=== PATIENT | female | born 1985 | race Caucasian/White ===

== ENCOUNTER 2020-10-20 17:46 | Emergency (ER) | payer MEDICAID, SELFPAY ==
[2020-10-20 17:49] VITALS: BP 130/87; PULSE 68; RESP 14; TEMP 36.7; O2SAT 98; BMI 29.3
--- NOTE | 2020-10-20 18:26 | EDS_ITS ---
HPI History of Present Illness Chief Complaint: Mental Health Narrative Narrative: 34-year-old female presenting with altered mental status. Apparently patient was found entering a residence by the buffing and polishing wheel repairer. She stated at that time that she was pulled there by a force. Patient's stated to police that she was a living prophecy and that she had Lex Shah. She also told police that she was poisoned by lead in the air and had been poisoned by multiple squats. Per police report patient had also been on other peoples properties and walking up and down the street with strange conversation with herself. She stated at that time to police that the telephone poles were talking to her. She was having trouble standing and was swaying back and forth. At that point she said she is stated she felt sick and needed to sit down. She states she believes also that she wanted to get home to get her mother's medications that she would feel better. On arrival to the ED patient refuses to talk except for the state that she feels fine. When asked about her previous behaviors she does not respond. She denies drug or alcohol use today. [facility] Medical History (Updated 10/20/20 @ 19:01 by Shirley Blake) Substance abuse Allergy/AdvReac Type Severity Reaction Status Date / Time azithromycin Allergy Vomiting Verified 10/20/20 17:51 Social History Smoking Status: Unknown if ever smoked ROS ROS ED Review of Systems ROS Unobtainable: due to mental condition and due to mental status EXAM Physical Exam Const Vital Signs: 10/20/20 17:49 10/20/20 20:00 10/20/20 21:00 Temperature 98.0 F Temperature Source Temporal Pulse Rate 68 Respiratory Rate 14 18 16 Blood Pressure 130/87 H Blood Pressure Mean 101 Pulse Ox 98 Oxygen Delivery Method Room Air 10/20/20 21:54 Temperature Temperature Source Pulse Rate 79 Respiratory Rate Blood Pressure 146/112 H Blood Pressure Mean 123 Pulse Ox 100 Oxygen Delivery Method Room Air Positive well nourished General Appearance ED: NAD HEENT Reports moist mucous membranes atraumatic Eyes PERRL and EOMs intact bilaterally Chest Wall inspection of chest normal and palpation of chest normal Resp normal respiratory effort and clear to auscultation bilaterally Cardio regular rate and regular rhythm GI soft to palpation, non-tender and non-distended Extremity General Extremety ED: Yes tenderness; Negative for edema General Extremity: Negative for edema Neuro CN's II-XII intact bilaterally and no sensory deficits noted Sensorium / Orientation: alert Motor Exam: strength 5/5 throughout Psych Psych Narrative: Denies suicidal homicidal ideation. Patient refuses to answer other questions. Skin Lesions: no lesions Rashes: no rashes MDM MDM MDM Narrative Medical decision making narrative: Patient presenting with altered mental status and abnormal behavior. I did review her medical history and this does appear to have happened before when she was on methamphetamine. Blood work here is unremarkable. Urinalysis negative for infection. Urine drug screen positive f or methamphetamine renal function is normal. Potassium is 3.2 and this will be repleted. Discussed with social work who recommended admission due to unstable behavior. Apparently the patient had made some comments last evening when arrested that she wanted to commit suicide. She is not saying anything about this today. Patient does not want to speak to me. Impression: 1. Suicidal ideation 2. Methamphetamine abuse 3. Altered mental Lab Data Attestation: I reviewed the patient's lab results. Labs: Laboratory Results - last 24 hr 10/20/20 10/20/20 10/20/20 18:20 18:30 18:52 WBC 9.1 RBC 4.44 Hgb 13.6 Hct 40.3 MCV 90.8 MCH 30.6 MCHC 33.7 RDW Std Deviation 39.0 RDW Coeff of Miryam 11.8 Plt Count 274 MPV 9.6 Immature Gran % (Auto) 0.400 Neut % (Auto) 67.4 Lymph % (Auto) 23.5 Gilmer % (Auto) 6.0 Eos % (Auto) 2.3 Baso % (Auto) 0.4 Absolute Neuts (auto) 6.1 Absolute Lymphs (auto) 2.13 Nucleated RBC % 0 Sodium Potassium Chloride Carbon Dioxide Anion Gap BUN Creatinine Estim Creat Clear Calc Est GFR (MDRD) Af Amer Est GFR (MDRD) Non-Af BUN/Creatinine Ratio Glucose Calcium Total Bilirubin AST ALT Alkaline Phosphatase Total Protein Albumin Globulin Albumin/Globulin Ratio Serum , Qual Urine Color Bonnie Urine Clarity Clear Urine pH 5.0 Ur Specific Carlisle 1.025 Urine Protein 30 H Urine Glucose (UA) Normal Urine Ketones 15 H Urine Occult Blood 250 H Urine Nitrite Negative Urine Bilirubin 1 H Urine Urobilinogen 4 H Ur Leukocyte Esterase 100 H Urine RBC 0-5 SEEN Urine WBC 0-5 SEEN Ur Squamous Epith Cells 0-5 SEEN Urine Bacteria 0 SEEN Urine Mucus 2+ Urine Opiates Screen NEGATIVE Urine Methadone Screen NEGATIVE Ur Barbiturates Screen NEGATIVE Ur Phencyclidine Scrn NEGATIVE Ur Amphetamines Screen POSITIVE H U Methamphetamin-MDMA POSITIVE H U Benzodiazepines Scrn NEGATIVE Urine Cocaine Screen NEGATIVE U Cannabinoids Screen NEGATIVE Ur Drug Screen Comment Ethyl Alcohol 10/20/20 10/20/20 10/20/20 18:52 18:52 18:52 WBC RBC Hgb Hct MCV MCH MCHC RDW Std Deviation RDW Coeff of Miryam Plt Count MPV Immature Gran % (Auto) Neut % (Auto) Lymph % (Auto) Gilmer % (Auto) Eos % (Auto) Baso % (Auto) Absolute Neuts (auto) Absolute Lymphs (auto) Nucleated RBC % Sodium 138 Potassium 3.2 L Chloride 105 Carbon Dioxide 24.0 Anion Gap 9 BUN 18 Creatinine 0.57 Estim Creat Clear Calc 125.14 Est GFR (MDRD) Af Amer 156 Est GFR (MDRD) Non-Af 129 BUN/Creatinine Ratio 31.6 H Glucose 92 Calcium 8.7 Total Bilirubin 0.90 AST 15 ALT 23 Alkaline Phosphatase 77 Total Protein 7.3 Albumin 3.9 Globulin 3.4 Albumin/Globulin Ratio 1.1 Serum , Qual NEGATIVE Urine Color Urine Clarity Urine pH Ur Specific Carlisle Urine Protein Urine Glucose (UA) Urine Ketones Urine Occult Blood Urine Nitrite Urine Bilirubin Urine Urobilinogen Ur Leukocyte Esterase Urine RBC Urine WBC Ur Squamous Epith Cells Urine Bacteria Urine Mucus Urine Opiates Screen Urine Methadone Screen Ur Barbiturates Screen Ur Phencyclidine Scrn Ur Amphetamines Screen U Methamphetamin-MDMA U Benzodiazepines Scrn Urine Cocaine Screen U Cannabinoids Screen Ur Drug Screen Comment Ethyl Alcohol < 3.0 Discharge Plan Triage Chief Complaint: Mental Health ED Provider: Julius Driver Dx/Rx/DC Orders Primary Care Provider: Care Physician,No Primary
[2020-10-20 18:46] LABS: Bacteria 0 SEEN /hpf (None Seen)
--- NOTE | 2020-10-20 19:02 | ED.RN ---
PER PHONE CALL TO MOTHER FELICIA, PT HAS BEEN USING METH AGAIN DAILY. MOTHER STATES SHE NEEDS TO GO BACK TO [facility], MOTHER STATES PT HAS BEEN ROAMING [employer] AND BREAKING INTO [employer]. MOTHER ADAMANTLY STATES SHE WILL NOT COME COME GET PT, SHE'S OUT OF CONTROL AND NEEDS HELP.
[2020-10-20 19:12] LABS: Absolute Lymphocyte Count 2.13 X10^3/uL (0.83-4.51); Absolute Neutrophil Count 6.1 X10^3/uL (2.0-7.7); Basophil# 0.04 X10^3/uL; Basophil% 0.4 % (0-1); Eosinophil# 0.21 X10^3/uL; Eosinophils% 2.3 % (0-5); Hematocrit 40.3 % (37-47); Hemoglobin 13.6 g/dL (12.0-15.0); Lymphocyte # 2.13 X10^3/ul (0.83-4.51); Lymphocyte % 23.5 % (19-41); Mean Corp Hgb Conc 33.7 g/dL (32-36); Mean Corpuscular Hgb 30.6 pg (27.0-32.0); Mean Corpuscular Volume 90.8 fL (81-99); Mean Platelet Vol. 9.6 fl (6.2-12.0); Monocyte# 0.54 X10^3/uL; NRBC Flagged by Analyzer 0 % (0-5); Neutrophil # 6.09 X10^3/uL (2.7-7.7); Neutrophil % 67.4 % (47-70); Platelet Count 274 K/mm3 (150-450); RBC Distribution Width CV 11.8 % (11.6-14.6); Red Blood Count 4.44 M/mm3 (4.2-5.4); White Blood Count 9.1 K/mm3 (4.4-11.0)
[2020-10-20 19:13] LABS: Color, Urine Amber (Yellow); Glucose, Dipstick Normal (Normal); Ketone-Dipstick 15 mg/dl (Negative); Leukocyte Esterase-Dipstick 100 /ul (Negative); Nitrite-Dipstick Negative (Negative); Occult Blood-Urine 250 /ul (Negative); Protein-Dipstick 30 mg/dl (Negative); Specific Gravity, Urine 1.025 (1.002-1.030); Urine Clarity Clear (Clear); Urine Urobilinogen 4 mg/dl (Normal)
[2020-10-20 19:18] LABS: Urine Bilirubin Dipstick 1 mg/dL (Negative)
[2020-10-20 19:23] LABS: Internal QC Validated? YES +Cl - CLEAR BKGD; Pregnancy, Serum, hCG Quali. NEGATIVE Negative
[2020-10-20 19:25] LABS: Mucous, Urine 2+ /hpf (<or=2+); Squamous Epithelial Cells - UA 0-5 SEEN /hpf (5-10); White Blood Cells 0-5 SEEN /hpf (0-5)
[2020-10-20 19:26] LABS: Red Blood Cells-Urine 0-5 SEEN /hpf (0-5)
[2020-10-20 19:30] LABS: ALB/GLOB Ratio 1.1 RATIO (0.9-2.4); AST(SGOT) 15 U/L (15-37); Alanine Aminotransfer ALT/SGPT 23 U/L (13-56); Albumin, Serum 3.9 g/dL (3.2-5.0); Alcohol, Blood (Medical)-Serum < 3.0 mg/dL; Alkaline Phosphatase 77 U/L (45-117); Anion Gap 9 (5-15); BUN 18 mg/dL (7-18); BUN/Creat Ratio 31.6 RATIO (10-20); Calcium,Total 8.7 mg/dL (8.5-10.1); Chloride 105 mmol/L (98-107); Creatinine, Serum 0.57 mg/dL (0.55-1.02); EST Glomerular Filtration Rate 129 mL/min (>60); Est Glom Filt Rate - Afr Amer 156 mL/min (>60); Estimated Creatinine Clearance 125.14 ml/min; Globulin 3.4 g/dL (2.2-4.2); Glucose 92 mg/dL (74-106); Potassium 3.2 mmol/L (3.5-5.1); Protein, Total 7.3 g/dL (6.4-8.2); Sodium Level 138 mmol/L (136-145)
[2020-10-20 19:46] LABS: Amphetamine Urine VISTA POSITIVE (<1000 ng/mL); Barbiturate Urine VISTA NEGATIVE (< 200 ng/mL); Benzodiazepine Urine VISTA NEGATIVE (< 200 ng/mL); Cocaine Urine VISTA NEGATIVE (< 300 ng/mL); Ecstacy Urine VISTA POSITIVE (< 500 ng/mL); Methadone Urine VISTA NEGATIVE (< 300 ng/mL); PCP Urine VISTA NEGATIVE (< 25 ng/mL); THC Urine VISTA NEGATIVE (< 50 ng/mL); Vista UDS pH Range 5
[2020-10-20 20:00] VITALS: RESP 18
--- NOTE | 2020-10-20 20:00 | CM.ED ---
SOCIAL WORK ASSESSMENT Referral Source: Dr. Driver Reason for Consult: Mental Health Chief Compliant: Patient presents to [facility] ER by squad and Lexa Slipped by police. Patient unable to actively participate in assessment. Information gathered by patient?s mother, police, and nursing staff. Marital/Social History: Single Living Situation: Homeless- mother reports patient unable to return to her home ?until she gets help.? Support/Resources: Limited History: None Education and Employment History: Some college, unemployed Mental Health Treatment/History: Mother states patient?s boyfriend believes her to be ?Bipolar.? Mother states patient has never been diagnosed with mental health issues. Abuse Issues: Mother reports unaware of any history of emotional, physical, or sexual abuse for patient. Substance Abuse History: Meth, heroin. Daily use. Risk to Self/Others: Suicidal- Mother states patient has voiced suicidal ideation to family and her boyfriend, Kana. Homicidal- Mother states Kana informed her patient threatened to kill him by ?burning down his home.? Mental Status Exam: Orientation- A&Ox2 Memory: impaired Appearance/General Behavior: disheveled Mood/Affect: bizarre, anxious Communication Pattern: will not respond to questions Thought Process: auditory and visual hallucinations, paranoid Judgement: poor Insight: poor Assessment: Patient presents [place] Slipped by police. Police reported they Police called because patient entered a residence and was found by the homeowner. Patient informed police that she was pulled to the home by a ?force? and that she was a ?living prophecy with Lex best.? Patient informed police that she was being poisoned by lead in the air and has been poisoned multiple times by EMS. Patient with bizarre behaviors. Patient reported telephone poles were ?talking to me.? Collateral information gathered by patient?s mother, Cristina Aditya. Per Cristina, patient?s boyfriend dropped her at mother?s home yesterday as she threatened to kill herself and him by burning down his home. Mother reports patient was clean for almost a year and relapsed with heroin. Mother reports patient with history of meth use. Mother concerned for patient?s safety due to threats of self harm and harm to others. Mother believes patient would benefit from hospitalization for stabilization. Mother states ?she has not been right for 2 years when she fell in a hole head first.? Emotional support provided to mother. Collaboration with Dr. Driver. Plan for inpatient psych. This worker to facilitate placement. Plan: Referral to inpatient psych for stabilization Bernard Singh, VP PRODUCT, BILL COLLECTOR
[2020-10-20 21:00] VITALS: RESP 16
--- NOTE | 2020-10-20 21:05 | CM.ED ---
SOCIAL WORK Referral faxed and called to [facility]. Pending review at this time. Bernard Singh, CAR RENTAL AGENT, CUSTOMER ACQUISITION MANAGER
--- NOTE | 2020-10-20 21:46 | CM.ED ---
SOCIAL WORK Patient accepted to [facility] by Dr. Arguello to the Intensive Treatment Unit. Nurse to call report to [phone]. [place] to set up transport. Bernard Singh, CHART READER, FIBER OPTIC SPLICER
[2020-10-20 21:54] VITALS: BP 146/112; PULSE 79; O2SAT 100
[2020-10-20 23:00] VITALS: RESP 18
[2020-10-21] VITALS: RESP 16
--- NOTE | 2020-10-21 18:37 | CM.ED ---
SW Note MAGGIE received voice mail from [facility] that Application for Emergency Admission ([place]) needs to updated with today's date. SW called [facility] and spoke to admissions. They received updated [place] at 7:30am so the situation has been handled. No further SW needs at this time. MAGGIE received call from Cristina Buregss, patient's mother who inquired about patient's status. MAGGIE updated mother on patient's placement. Cristina requested that Leif call her back on Sunday. MAGGIE will leave message for Leif, the school social worker. Susanne BEAN
== END 2020-10-21 01:28 ==
LOC: ED 19:08
PROVIDERS: Emergency Provider Student in an Organized Health Care Education/Training Program
DX: R45.851 Suicidal ideations (principal); F15.10 Other stimulant abuse, uncomplicated; R41.82 Altered mental status, unspecified
CPT/HCPCS: 80053; 80307; 81001; 82077; 84703; 85025; 87426; 99285

== ENCOUNTER 2025-01-28 11:12 | Emergency (ER) | payer OTHER, SELFPAY ==
[2025-01-28] VITALS (7 sets, daily range): BP systolic 129–131; BP diastolic 75–82; PULSE 68–76; RESP 16–18; TEMP 36.6; O2SAT 98–100; BMI 29.9
--- NOTE | 2025-01-28 12:00 | ED.VIS.DYS ---
HPI History of Present Illness Chief Complaint: Shortness of Breath Informant: patient Narrative Narrative: Patient is a 39-year-old female with a history of mitral valve prolapse and heartburn, presenting with dyspnea and chest tightness. - Symptoms began on Sunday, progressively worsening over 2-3 days. - Reports dyspnea even while speaking, with increased exertion. - Describes chest discomfort as tightness and heaviness in the mid-chest, intermittent, with some extension to the upper stomach. - Denies nausea, emesis, cough, or current abdominal pain. - Denies lower extremity swelling or pain, but notes arm weakness. - Denies recent long trips, hospitalizations, or surgeries in the past 1-2 months. - Denies history of blood clots, clotting disorders, asthma, or wheezing. - Denies family history of clotting disorders. - Recently completed menstrual cycle. - Former smoker. - Denies use of control pills or other female hormones. [facility] Medical History Substance abuse Home Medications ?Medication ?Instructions ?Recorded ?Last Taken ?Type ascorbate calcium (vitamin C) 500 500 mg PO QDAY 01/21/25 Unknown History mg tablet cholecalciferol (vitamin D3) 25 25 mcg PO QDAY 01/21/25 Unknown History mcg (1,000 unit) capsule cyanocobalamin (vitamin B-12) 1,000 mcg PO QDAY 01/21/25 Unknown History 1,000 mcg capsule magnesium 200 mg tablet 200 mg PO QDAY 01/21/25 Unknown History magnesium citrate 100 mg capsule 100 mg PO QDAY 01/21/25 Unknown History albuterol sulfate 90 mcg/actuation 1 - 2 puff inhalation Q4H PRN PRN 01/28/25 Unknown Rx aerosol inhaler (Ventolin HFA) Wheezing ##1 prednisone 20 mg tablet 40 mg (2 x 20 mg) PO DAILY 5 days 01/28/25 Unknown Rx #10 tabs Allergy/AdvReac Type Severity Reaction Status Date / Time azithromycin Allergy Vomiting Verified 01/28/25 11:15 Social History Smoking Status: Former smoker ROS ROS ED Constitutional Constitutional ED: Denies chills or fever(s) Eyes Eyes: Denies change in vision or diplopia ENT ENT ED: Denies rhinorrhea or sore throat Cardiovascular Cardiovascular: Reports as per HPI and chest pain; Denies leg edema, lightheadedness, orthopnea, palpitations, radiating jaw, neck or arm pain or syncope Respiratory/Chest Respiratory/Chest: Reports dyspnea and dyspnea on exertion; Denies cough or orthopnea Gastrointestinal Gastrointestinal: Denies abdominal pain, diarrhea, nausea or vomiting Genitourinary Genitourinary ED: Denies dysuria or hematuria Musculoskeletal Musculoskeletal: Denies back pain or neck pain Integumentary Denies abscess or rash Neurologic Neurologic: Denies headache(s), paresthesias or weakness Psychiatric Psychiatric: Denies suicidal thoughts EXAM Physical Exam Const Vital Signs: 01/28/25 11:13 01/28/25 11:37 01/28/25 12:00 Temperature 97.8 F Temperature Source Temporal Pulse Rate 75 Respiratory Rate 18 Respiratory Effort Normal Respiratory Depth Normal Respiratory Pattern Normal Blood Pressure 131/82 H Blood Pressure Mean 98 Pulse Ox 99 Oxygen Delivery Method Room Air Room Air Room Air 01/28/25 12:00 01/28/25 13:00 01/28/25 14:00 Temperature Temperature Source Pulse Rate 73 72 76 Respiratory Rate 16 16 16 Respiratory Effort Respiratory Depth Respiratory Pattern Blood Pressure 129/79 H Blood Pressure Mean 95 Pulse Ox 99 99 98 Oxygen Delivery Method Room Air Room Air Room Air 01/28/25 14:21 Temperature Temperature Source Pulse Rate 72 Respiratory Rate 18 Respiratory Effort Respiratory Depth Respiratory Pattern Normal Blood Pressure Blood Pressure Mean Pulse Ox Oxygen Delivery Method Positive well nourished and well developed General Appearance ED: well developed and NAD HEENT Reports moist mucous membranes normocephalic and atraumatic Eyes PERRL and EOMs intact bilaterally Neck full ROM, supple and no JVD Resp normal respiratory effort and clear to auscultation bilaterally Cardio regular rate, regular rhythm and no murmurs GI non-tender and non-distended Auscultation: normoactive bowel sounds Palpation: soft Back/Spine no CVA tenderness General Back: other FROM Extremity normal to inspection General Extremety ED: Negative for edema, pulses abnormal or tenderness General Extremity: Negative for edema or pulses abnormal Neuro oriented x3, CN's II-XII intact bilaterally and no sensory deficits noted Sensorium / Orientation: awake and alert Motor Exam: strength 5/5 throughout Skin no rashes or lesions noted and no wounds MDM MDM MDM Narrative Medical decision making narrative: Assessment: The patient is a 39-year-old female with PMH of mitral valve prolapse and heartburn presenting for three days of progressive shortness of breath and intermittent mid-sternal chest tightness. Vitals are normal and she remains comfortably conversant without hypoxia. D-dimer is normal, ruling out pulmonary embolism; chest X-ray shows no pneumonia, pneumothorax, or other acute process; EKG and troponin are normal, making acute coronary syndrome unlikely; proBNP is normal, arguing against acute decompensated heart failure. She reported marked symptomatic relief after an albuterol treatment, making mild intermittent reactive airway disease the most likely etiology of her symptoms. Plan: - Administered albuterol nebulizer in ED with good symptomatic response - Prescribed albuterol inhaler PRN - Provided [id number] prescription for 5-day prednisone burst - Discussed return precautions and need for outpatient follow-up - Discharged home in stable condition given normal ancillary testing and clinical improvement Diagnostics: - EKG interpreted by , Tomi Aguilar: normal - Labs: D-dimer normal - Labs: Troponin normal - Labs: proBNP normal - Chest X-ray: no pneumonia, no pneumothorax, no acute pathology Reevaluations: - Patient re-examined after albuterol; reports significant improvement, comfortably speaking without dyspnea Lab Data Attestation: I reviewed the patient's lab results. Labs: Laboratory Results - last 24 hr 01/28/25 12:36 WBC 5.6 RBC 4.42 Hgb 13.8 Hct 40.5 MCV 91.6 MCH 31.2 MCHC 34.1 RDW Std Deviation 38.3 RDW Coeff of Miryam 11.4 L Plt Count TNP MPV 10.0 Immature Gran % (Auto) 0.200 Neut % (Auto) 54.3 Lymph % (Auto) 36.3 Divide % (Auto) 5.8 Eos % (Auto) 2.9 Baso % (Auto) 0.5 Absolute Neuts (auto) 3.0 Absolute Lymphs (auto) 2.02 Nucleated RBC % 0 Platelet Estimate ADEQUATE D-Dimer Quant (PE/DVT) < 0.27 L Sodium 139 Potassium 4.1 Chloride 105 Carbon Dioxide 23.4 Anion Gap 11 BUN 15 Creatinine 0.57 L Estim Creat Clear Calc 139.86 Est GFR (MDRD) Non-Af 119 BUN/Creatinine Ratio 27.3 H Glucose 91 Calcium 9.5 Troponin T High Sens < 6 NT pro BNP II 149 Radiography Diagnostic Testing: Clinical Impression(s) from Imaging Studies Chest X-Ray 01/28/25 12:55 IMPRESSION: No acute pulmonary process Reading Location: [address] Rhythm Strip Rhythm Strip: Sinus Rhythm Rate: 60 Ectopy: None EKG Initial EKG: Attestation: I personally reviewed and interpreted this EKG as follows: Interpretation: Sinus Rhythm, No Acute Injury Pattern and AV Block (1st deg) Comments: First-degree AV block, normal axis and intervals otherwise normal EKG Discharge Plan Triage Chief Complaint: Shortness of Breath ED Provider: Tomi Aguilar Dx/Rx/DC Orders Clinical Impression: RAD (reactive airway disease), Chest tightness, Dyspnea Instructions: Using an Inhaler, Asthma Trigger Checklist Prescriptions: New prednisone 20 mg tablet 40 mg PO DAILY 5 Days Qty: 10 0RF albuterol sulfate [Ventolin HFA] 90 mcg/actuation HFA aerosol inhaler 1 - 2 puff inhalation Q4H PRN PRN (Reason: Wheezing) Qty: 1 0RF No Action ascorbate calcium (vitamin C) 500 mg tablet 500 mg PO QDAY cholecalciferol (vitamin D3) 25 mcg (1,000 unit) capsule 25 mcg PO QDAY magnesium 200 mg tablet 200 mg PO QDAY cyanocobalamin (vitamin B-12) 1,000 mcg capsule 1,000 mcg PO QDAY magnesium citrate 100 mg capsule 100 mg PO QDAY Primary Care Provider: Reggie Parrish Referrals: Reggie Parrish DO [Primary Care Provider, Family Practice] - 1 Week Activity Restrictions/Additional Instructions: - Use the albuterol inhaler as needed for relief of shortness of breath; you may take it a couple of times a day if needed. - If you find yourself using the inhaler several times a day over the next few days, fill and start the 5-day burst of prednisone and complete the entire course. - After finishing the prednisone burst, follow up with your doctor for reassessment. Print Language: Jordanian Disposition Disposition: Home, Self Care Discharge Date/Time: 01/28/25 14:45
[2025-01-28 12:52] LABS: Hematocrit 40.5 % (37-47); Hemoglobin 13.8 g/dL (12.0-15.0); Immature Granulocytes Count 0.010 X10^3/uL (0.0-0.0); Mean Corp Hgb Conc 34.1 g/dL (32-36); Mean Corpuscular Volume 91.6 fL (81-99); Mean Platelet Vol. 10.0 fl (6.2-12.0); NRBC Flagged by Analyzer 0 % (0-5); POSITIVE COUNT YES; RBC Distribution Width CV 11.4 % (11.6-14.6); RBC Distribution Width SD 38.3 fl (35.1-43.9); Red Blood Count 4.42 M/mm3 (4.2-5.4); White Blood Count 5.6 K/mm3 (4.4-11.0)
--- NOTE | 2025-01-28 12:55 | RAD_ITS ---
PROCEDURE: RAD/Chest PA and Lateral
[2025-01-28 12:56] LABS: Differential Indicated SCAN CRITERIA MET
[2025-01-28 12:58] LABS: D-Dimer Quantitative (DVT/PE) < 0.27 FEU/ug/m (0.27-0.49)
[2025-01-28 13:11] LABS: Anion Gap 11 (5-15); BUN 15 mg/dL (4-19); BUN/Creat Ratio 27.3 RATIO (10-20); Calcium,Total 9.5 mg/dL (7.6-11.0); Carbon Dioxide 23.4 mmol/L (21.0-32.0); Chloride 105 mmol/L (98-108); Estimated Creatinine Clearance 139.86 ml/min (50-250); Glucose 91 mg/dL (70-99); Potassium 4.1 mmol/L (3.3-5.1)
[2025-01-28 13:44] LABS: Pro- Brain NATRIURETIC PEPTIDE 149 pg/mL (<=450); Troponin T High Sensitivity < 6 ng/L (<=14)
[2025-01-28] MEDS: Albuterol 2.5 MG/3 ML VIAL.NEB. INHALATION (13:58)
== END 2025-01-28 14:45 | disposition home or self-care (01) ==
PROVIDERS: Emergency Provider Emergency Medicine; PCP Student in an Organized Health Care Education/Training Program; Visit Provider Emergency Medicine
DX: J45.909 Unspecified asthma, uncomplicated (principal); R07.89 Other chest pain; R06.00 Dyspnea, unspecified; Z87.891 Personal history of nicotine dependence
CPT/HCPCS: 71046; 80048; 83880; 84484; 85025; 85379; 93005; 94640; 99283